=== PATIENT | male | born 1965 | race Two or more races ===

== ENCOUNTER 2024-09-30 11:01 | Outpatient (AMB) | payer OTHER, SELFPAY ==
--- NOTE | 2024-09-30 11:33 | A.OFFVIS_ITS ---
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 States his pain started approx 10 yrs, no injury or fall he can recall. Pain is all around his lumbar and radiates down to his knees and once to his toes. He experienced numbness in his right foot back in 2014. States he had a MRI 7-8 years ago but doesn't recall where he had it done. He was told he has O.A. He believes this could be sciatic pain. He has tried P.T about 8 years ago but states it did not really help him. He has not had any numbness in his toes since 2015. Customer Complaint Service Supervisor Required: Yes Customer Complaint Service Supervisor Services: Customer Complaint Service Supervisor Present Allergies No Known Allergies Allergy (Verified 09/30/24 11:41) Medication List - Last Reconciled 09/30/24 by Scarlett Levy MD carvedilol 3.125 mg PO BID cholecalciferol (vitamin D3) 25 mcg PO DAILY meloxicam 7.5 mg PO DAILY tamsulosin 0.4 mg PO BEDTIME HPI Comments Details: Chronic at least 10 years of back pain. Bothers him daily. He has been able to manage and denies intense pain. But he says it keeps him from working. Sometimes he would have severe pain episodes that prevents him from walking or working, happens every month. Switches sides from left and right. Stays in his lower back across, not midline, radiates to his legs to his knees. No numbness on his toes or knees. No PT or MRI for many years. No injections yet. [facility] Medical History (Updated 09/30/24 @ 11:52 by Scarlett Levy MD) Chronic back pain Social History (Updated 09/30/24 @ 11:42 by Suzette Alvares [facility]) Current occupational status: employed Current occupation: barbar/ rt hand Review of Systems Const All systems reviewed & are unremarkable except as noted in HPI and below Physical Exam Constitutional: Patient appears to be in no acute distress, well nourished and well developed. Patient was appropriately conversant and oriented. Good historian. MSK: No specific abnormalities found on inspection of the spine and all extremities. No pain with palpation over the lumbar area. Lumbar ROM was full. Bilateral hip, knee and ankle ROM WNL. No ligamentous laxity or crepitance. No increased effusion. Straight-leg raising test negative. FABERE test negative. Strength is 5/5 in all muscle groups tested. No increased tone noted. Neurological: Neurologic examination of the upper and lower extremities was nonfocal with intact sensation, muscle stretch reflexes and without focal motor deficits . Babinski was down going bilaterally. Clonus was negative. Gait is non-antalgic without loss of balance. Results Reviewed Results Reviewed: No recent imaging I reviewed records from the following: PCP Assessment & Plan Assessment & Plan (1) Chronic back pain: Code(s): M54.9 - Dorsalgia, unspecified; G89.29 - Other chronic pain Category: Medical Plan Chronic back pain without any specific tenderness on exam or any specific radiculopathy distribution. We will refer to physical therapy. Patient is agreeable. Lumbar x-rays today. Depending on results, we may need further imaging. We briefly talked about possibly pursuing injections, depending on results and his improvement from PT. Assessment and plan discussed with patient, and patient was agreeable. All questions were answered thoroughly. Follow up 6 weeks. Scarlett Levy MD, LARRY Board Certified, [place] Board of Physical Medicine and Rehabilitation (ABPMR) Board Certified, [place] Board of Electrodiagnostic Medicine (ABEM) Orders: Orders PT Evaluation and Treatment Today G89.29 - Other chronic pain, M54.9 - Dorsalgia, unspecified XR lumbar spine 2-3V Today G89.29 - Other chronic pain, M54.9 - Dorsalgia, unspecified Coding Level of Care Code New Pt Level 4 (98340) Diagnoses Chronic back pain M54.9; G89.29
== END 2024-09-30 11:54 | disposition home or self-care (01) ==
PROVIDERS: PCP Physician Assistant Medical; Visit Provider Physical Medicine & Rehabilitation
DX: M54.9 Dorsalgia, unspecified (principal); G89.29 Other chronic pain
CPT/HCPCS: 99203

== ENCOUNTER 2024-09-30 11:01 | Outpatient (REF) | payer OTHER, SELFPAY | END 2024-09-30 11:02 | disposition home or self-care (01) | LOC: HO.HOSX 11:01 | PROVIDERS: PCP Physician Assistant Medical; Visit Provider Physical Medicine & Rehabilitation | DX: M54.9 Dorsalgia, unspecified (principal); G89.29 Other chronic pain | CPT/HCPCS: 99202 ==

== ENCOUNTER 2024-11-12 08:51 | Outpatient (REF) | payer OTHER, SELFPAY ==
--- NOTE | ~2024-11-12 | XR_ITS ---
EXAMINATION: XR LUMBAR SPINE 2-3 VIEWS HISTORY: M54.9 - Dorsalgia, unspecified COMPARISON: There are no prior studies for comparison. FINDINGS: AP, lateral, and coned down views of the lumbar spine are submitted. Osseous mineralization is normal. Five nonrib-bearing lumbar vertebral bodies are identified, maintaining normal height and alignment without evidence of fracture or spondylolisthesis. There is minimal posterior spurring involving the inferior endplate of L3. The intervertebral disc spaces are preserved. The posterior elements are intact. The visualized paraspinal soft tissues are unremarkable. XR/XR lumbar spine 2-3V IMPRESSION: Minimal degenerative changes as described. Electronically signed by: Michele Aguilar MD 11/12/2024 02:25 PM RAEANN
--- OUTSIDE RECORDS SUMMARY | 2024-11-12 09:50 | XMS_ITS | Encounter Summary ---
Author Organization [employer] [facility] Address [address] [place] [address] Care Team Providers Care [place] Dental Lab Technician Name Role Phone Unavailable Primary Care Provider Unavailabl e Encounter Details Date Type Department Care Team (Latest Contact Info) Description 01/20/2019 Abstract [facility] CONVERSIONS Dental, Provider, DDS Social History Tobacco Use Types Packs/Day Years Used Date Smoking Tobacco: Never Assessed Sex and Gender Information Value Date Recorded Sex Assigned at Male 08/12/2022 10:28 AM EDT Legal Sex Male 10:28 AM EDT Gender Identity Male 08/12/2022 10:28 AM EDT Sexual Orientation Don't know 08/12/2022 10 :28 AM EDT documented as of this encounter Plan of Treatment Upcoming Encounters Date Type Department Care Team (Late st Contact Info) Description 11/22/2024 10:00 AM EST [facility] [address] [place], [place] [phone] Mary Duran [address] [place], [place] [phone] documented as of this encounter Visit Diagnoses Not on filedocumented in this encounter
--- OUTSIDE RECORDS SUMMARY | 2024-11-12 09:50 | XMS_ITS | Encounter Summary ---
Author Organization [facility] Address [address] [place] [address] Care Team Providers Care Computator Name Role Phone Unavailable Primary Care Provider Unavailabl e Encounter Details Date Type Department Care Team (Latest Contact Info) Description 01/24/2021 Abstract [facility] CONVERSIONS Dental, Provider, DDS Social History [...] Description 11/22/2024 10:00 AM EST Office Visit [facility] [address] [place], [place] [phone] Mary Duran [address] [place], [place] [phone] documented as of this encounter Visit Diagnoses Not on filedocumented in this encounter
--- OUTSIDE RECORDS SUMMARY | 2024-11-12 09:50 | XMS_ITS | Clinical Summary ---
Author Organization [facility] Address [address] [place] [address] Care Team Providers Care Marble Installer Name Role Phone Kalpesh Barker PA-C Primary Care Provider [phone] Source Comments PLEASE NOTE, if this patient is a minor, it may be UNLAWFUL to discuss sensitive information that is contained in these records (such as FAMILY PLANNING, MENTAL HEALTH or SUBSTANCE ABUSE) with the minor patient's parent or other person without the patient's specific authorization.[facility] Allergies No known active allergies Medications tamsulosin (FLOMAX) 0.4 mg 24 hr capsule TAKE 1 CAPSULE BY MOUTH EVERYDAY AT BEDTIME 0 Active oxybutynin chloride (DITROPAN-XL) 5 mg 24 hr tablet 1 Active magnesium oxide (MAG-OX) 400 mg (241.3 mg magnesium) tablet Take 1 Tablet by mouth once daily 3 Active meloxicam (MOBIC) 15 mg tabletIndications:L eft arm pain,Chronic midline low back pain without sciatica Take 1 Tablet by mouth once daily 30 Tablet 1 3 Active magnesium citrate solution Take 296 mL by mouth Active cholecalciferol (VITAMIN D-3) 50 mcg (2,000 unit) tablet Take 2,000 Units by mouth 4 05/11/20 25 Active atorvastatin (LIPITOR) 20 mg tabletIndications:M ixed hyperlipidemia TAKE 1 TABLET BY MOUTH ONCE DAILY WITH DINNER 90 Tablet 1 4 Active carvediloL (COREG) 12.5 mg tabletIndications:P alpitations TAKE 1 TABLET BY MOUTH TWICE A DAY WITH FOOD 180 Tablet 1 4 Active lisinopriL 5 mg tabletIndications:S tage 3a chronic kidney disease ([facility]) TAKE 1 TABLET BY MOUTH EVERY DAY 90 Tablet 1 4 Active Active Problems Problem Noted Date Diagnosed Date Vitamin D deficiency 05/11/2024 Chronic kidney disease due to benign hypertensio n 03/24/2024 Chronic kidney disease, stage 3a ([facility]) 03/24 Back pain 02/04/2024 History of latent tuberculosis 04/04/2020 BPH (benign prostatic hyperplasia) 01/11/2019 Overview (01/11/2019): 01/10/19 - Evaluated by [facility]: improving voiding patterns in setting of BPH/LUTS on Tamsulosin. Plan: c/w same. Prediabetes 12/14/2018 Palpitations 10/29/2018 Overview (12/14/2018): 01/29/18 -[facility] F/U due to palpitation. Pt had 30 day event monitor which showed rare PVC. Was started on Metoprolol but became too hypotensive so was switched to Carvedilol. No further cardiac F/U needed. 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 Pt completed 4 months of therapy. positive T-spot blood test Resolved Problems Problem Noted Date Diagnosed Date Resolved Date Latent tuberculosis 04/04/2020 04/04/20 20 Immunizations Name Administration Dates Next Due Hep B,adult,adjuvanted (HEPLISAV) 06/08/2024 INFLUENZA, SEASONAL, INJECTABLE 08/01/2015 Moderna COVID-19 Vaccine, re d cap blue label, 12+ Primary Series 03/05/2021,02/05/2021 TDAP 12/14/2018,08/01/2015 Family History Medical History Relation Name Comments BPH Father Cancer Father Diabetes Father Prostate Cancer Paternal Uncle Thyroid Disease Sister Relation Name Status Comments Father prostate Mother Alive Paternal Uncle Alive Sister Social History Tobacco Use Types Packs/Day Years Used Date Smoking Tobacco: Never Smokeless Tobacco: Never Tobacco Cessation:Counseling Given: Yes Alcohol Use Standard Drinks/Week Comments Yes 3 (1 standard drink = 0.6 oz pur e alcohol) occassional Social Connections Answer Date Recorded Connectedness 1 02/04/2024 Financial Resource Strain Answer Date R ecorded Financial Resource Strain 1 2023 Stress Answer Date Recorded Stress 1 02/04/2024 Physical Activity Answer Date Recorded Physical Activity 0 06/07/2019 Food Insecurity Answer Date Recorded Food 1 02/04/2024 Transportation Needs Answer Date Record ed Transportation 1 02/04/2024 Housing Stability Answer Date Recorded Housing 1 02/04/2024 Safety and Environment Answer Date Lj rded Safety 1 02/04/2024 Utilities Answer Date Recorded Utilities 1 02/04/2024 Employment Answer Date Recorded Employment 0 06/07/2019 Sex and Gender Information Value Date Recorded Sex Assigned at Male 10/29/2018 10:56 AM PST Legal Sex Male 8:37 AM PDT Gender Identity Male 10/29/2018 10:56 AM PST Sexual Orientation Straight 10/29/2018 10 :56 AM PST Occupation Industry Job Start Date Job End Date [employer] Not on file Not on file Not on file Last Filed Vital Signs Vital Sign Reading Time Taken Comments Blood Pressure 138/82 06/08/2024 10:34 AM EDT Pulse 72 06/08/2024 10:34 AM EDT Temperature 36.9 ??C (98.4 ??F) 02/04/2024 8:44 AM ED T Respiratory Rate 20 06/08/2024 10:34 AM EDT Oxygen Saturation 98% 06/08/2024 10:34 AM EDT Inhaled Oxygen Concentration - - Weight 84.2 kg (185 lb 9.6 oz) 06/08/2024 10:34 AM EDT Height 177.8 cm (5' 10 ) 06/08/2024 10:34 AM EDT Body Mass Index 26.63 06/08/2024 10:34 AM EDT Plan of Treatment Upcoming Encounters Date Type Department Care Team (Late st Contact Info) Description 12/09/2024 11:20 AM EST Office Visit [facility] [address] [place] [phone] Kalpesh Barker PA-C [address] [place] [address] Health Maintenance Due Date Last Done Comments CT Colonography 2012 Colonoscopy 2012 Colorectal Cancer Screening 2012 FIT/gFOBT 2012 Fecal DNA 2012 Flexible Sigmoidoscopy 2012 Imm-Zoster, Recombinant (1 of 2) 2017 Imm-Hepatitis B (2 of 2 - CpG 2-dose series) 07/06/2024 06/08/2024 Alcohol and Drug Screen 10/13/2024 02/04/20, 07/24/2023, 02/07/2022, Additional history exists Depression Annual Screen 10/13/2024 02/04/2024, 10/13 [id number] () 12/16/2024 03/05/2021, 02/05/2021 Postponed from 06/13/2024 (Patient postponement) Annual Preventive Care Visit 02/03/2025 02/04/2024, 07/24/2023, 05/07/2021, Additional history exists Tobacco Screening 02/03/2025 02/04/2024, 07/24/2023 Diabetes Screening 07/05/2025 07/05/2024, 0 07/05/2024, 02/20/2024, Additional history exists Lipid Screening 07/05/2025 07/05/2024, 02/10, 11/20/2023, Additional history exists Imm-DTaP/Tdap/Td (3 - Td or Tdap) 12/14/2028 12/14/2018, 08/01/2015 Imm-Influenza Discontinued 08/01/2015 HIV Screening Completed 04/12/2020 Hepatitis C Screening Completed 11/20/2023 Procedures Procedure Name Priority Date/Time Associated Diagnosis Comments REFERRAL TO ORTHOPEDICS Routine 09/30/2024 3:00 AM EST Chronic midline low back pain with bilateral sciatica HEMOGLOBIN GLYCOSYLATED A1C Routine 07/05/2024 8:37 AM EDT Prediabetes LIPID PANEL Routine 07/05/2024 8:37 AM EDT Mixed hyperlipidemia Stage 3a chronic kidney disease (HCC-CMS) Prediabetes HEPATITIS C AB W/RFLX HCV RNA, QT, RT PCR Routine 11/20/2023 9:20 AM EST Need for hepatitis C screening test ANTIBODY HIV-1&HIV-2 SINGLE RESULT Routine 04/12/2020 9:37 AM EDT Encounter for screening for HIV from Last 3 Months or Most Recently Relevant to Health Maintenance Results * REFERRAL TO ORTHOPEDICS (09/30/2024 3:00 AM EST) 09/30/2024 3:00 AM EST us Kalpesh Barker PA-C REFERRAL Final Result * (ABNORMAL) HEMOGLOBIN GLYCOSYLATED A1C (07/05/2024 8:37 AM EDT) HEMOGLOBIN A1C 5.7(H) <5.7 % of total Hgb [facility] Comment: For someone without known diabetes, a hemoglobin A1c value between 5.7% and 6.4% is consistent with prediabetes and should be confirmed with a follow-up test. For someone with known diabetes, a value <7% indicates that their diabetes is well controlled. A1c targets should be individualized based on duration of diabetes, age, comorbid conditions, and other considerations. This assay result is consistent with an increased risk of diabetes. Currently, no consensus exists regarding use of hemoglobin A1c for diagnosis of diabetes for children. Blood Blood / Unknown 07/05/2024 8 :37 AM EDT 07/05/2024 8:37 AM EDT Narrative [facility] - 07/06/2024 12:13 PM EDT FASTING:YES us Kalpesh Barker PA-C LAB - BLOOD DRAW Edited Resu lt - Final [facility] [address] [place] [id number], [facility] [address] [place] [phone] * LIPID PANEL (07/05/2024 8:37 AM EDT) CHOLESTEROL, TOTAL 127 <200 mg/dL [facility] HDL CHOLESTEROL 43 > OR = 40 mg/dL [facility] TRIGLYCERIDES 62 <150 mg/dL [facility] LDL-CHOLESTEROL 70 99 mg/dL (calc) [facility] Comment: Reference range: <100 Desirable range <100 mg/dL for primary prevention; ?? <70 mg/dL for patients with CHD or diabetic patients with > or = 2 CHD risk factors. LDL-C is now calculated using the Jose M calculation, which is a validated novel method providing better accuracy than the Friedewald equation in the estimation of LDL-C. Mahesh LUI et al. NED. 2013;310(19): 3683-5337 (http://education.[employer] Pixels/faq/MUE811) CHOL/HDLC RATIO 3.0 <5.0 (calc) [facility] NON-HDL CHOLESTEROL 84 <130 mg/dL (calc) [facility] Comment: For patients with diabetes plus 1 major ASCVD risk factor, treating to a non-HDL-C goal of <100 mg/dL (LDL-C of <70 mg/dL) is considered a therapeutic option. Blood Blood / Unknown 07/05/2024 8 :37 AM EDT 07/05/2024 8:37 AM EDT Narrative [facility] - 07/06/2024 12:13 PM EDT FASTING:YES Kalpesh Barker PA-C LAB - BLOOD DRAW Final Resul t [facility] [address] [place] [id number], [facility] [address] [place] [phone] * HEPATITIS C AB W/RFLX HCV RNA, QT, RT PCR (11/20/2023 9:20 AM EST) HEPATITIS C ANTIBODY NON-REACT DAYANA NON-REACT DAYANA [facility] Comment: HCV antibody was non-reactive. There is no laboratory evidence of HCV infection. In most cases, no further action is required. However, if recent HCV exposure is suspected, a test for HCV RNA (test code 42713) is suggested. For additional information please refer to http://education.[employer].K[employer]ure/faq/YKW50a0 (This link is being provided for informational/ educational purposes only.) Blood Blood / Unknown 11/20/2023 9 :20 AM EST 11/20/2023 9:21 AM EST Narrative [facility] - 11/21/2023 10:19 PM EST FASTING:YES Gretta Judd NP LAB - BLOOD DRAW Final Resul t Performing Organization Address City/[facility]/ZIP Co de Phone Number [facility] [address] [address], [facility] [address] [phone] * HIV-1 & HIV-2 ANTIBODIES (04/12/2020 9:37 AM EDT) [facility] HIV 1 AND 2 ANTIBODY SCREEN NEGATIVE NEGATIVE [facility] [employer] [facility] Comment: This assay is a 4th generation assay allowing for earlier detection of HIV infection by detecting the presence of the HIV-1 p24 antigen as well as the traditional antibodies to HIV type 1 (including group O) and type 2. ??Use of a 4th generation assay is the current CDC recommendation for HIV screening. Blood specimen (specimen) Blood / Unknown 04/12/2020 9:37 AM EDT 04/12/2020 1:00 PM EDT Narrative [facility] - 04/12/2020 3:36 PM EDT [employer], [place] [address] Proofer - Lori Carvajal MD PT ID [id number] ORD# [id number] Kalpesh Barker PA-C LAB - BLOOD DRAW Final Resul t Performing Organization Address City/[facility]/ZIP Co de Phone Number [place] [address], from Last 3 Months or Most Recently Relevant to Health Maintenance Insurance [employer] Member Subscriber Plan / Payer (Ef fective 2024-Present) Name:Lawson Miller Relation to Subscriber:Self Name:Lawson Miller Payer ID:[id number] Type:Indemnity Address: [facility] [address] [place] [address] Care Teams Marble Installer Relationship Specialty Start Date End Date Kalpesh Barker PA-C [address] [place] [address] PCP - General FAMILY MEDICINE, [place] 04/04/20
--- OUTSIDE RECORDS SUMMARY | 2024-11-12 09:50 | XMS_ITS | Clinical Summary ---
Author Organization [facility] it Address [address] [place] [address] Care Team Providers Care Oiling Machine Operator Name Role Phone Unavailable Primary Care Provider Unavailabl e Social History Tobacco Use Types Packs/Day Years Used Date Smoking Tobacco: Never Assessed Sex and Gender Information Value Date Recorded Sex Assigned at Not on file Gender Identity Not on file Sexual Orientation Not on file Plan of Treatment Health Maintenance Due Date Last Done Comments DTaP,Tdap,and Td Vaccines (1 - Tdap) 1986 Hepatitis B Vaccines (1 of 3 - 19+ 3-dose series) 1986 Zoster Vaccines (1 of 2) 2017 Cholesterol Screening (Lipid Panel) 09/15/2022 Colorectal Cancer Screening: Colonoscopy 09/15/2022 Depression Screening 09/15/2022 HIV Screening 09/15/2022 Hepatitis C Screening 09/15/2022 Social Influencers of Health Screening 09/15/2022 COVID-19 Vaccine (2023-2 5 season) 2024 Influenza Vaccine (#1) 2024 HIB Vaccines Aged Out No longer eligi ble based on patient's age to complete this topic HPV Vaccines Aged Out No longer eligi ble based on patient's age to complete this topic Hepatitis A Vaccines Aged Out No long er eligible based on patient's age to complete this topic IPV Vaccines Aged Out No longer eligi ble based on patient's age to complete this topic MMR Vaccines Aged Out No longer eligi ble based on patient's age to complete this topic Meningococcal ACWY Vaccine Aged Out N o longer eligible based on patient's age to complete this topic Pneumococcal Vaccine: Pediat rics (0 to 5 Years) and At-Risk Patients (6 to 64 Years) Aged Out No longer eligible b ased on patient's age to complete this topic RSV Immunization Patients Un rea 20 months Aged Out No longer eligible b ased on patient's age to complete this topic Varicella Vaccines Aged Out No longer eligible based on patient's age to complete this topic
--- OUTSIDE RECORDS SUMMARY | 2024-11-12 09:50 | XMS_ITS | Encounter Summary ---
Author Organization [facility] Address [address] [place] [address] Care Team Providers Care Insurance Defense Paralegal Name Role Phone Unavailable Primary Care Provider Unavailabl e Encounter Details Date Type Department Care Team (Latest Contact Info) Description 06/06/2022 Abstract [facility] CONVERSIONS Dental, Provider, DDS Social History Tobacco [...] Description 11/22/2024 10:00 AM EST Office Visit [facility] [address] [place], [place] [phone] Mary Duran [address] [place], [place] [phone] documented as of this encounter Visit Diagnoses Not on filedocumented in this encounter
--- OUTSIDE RECORDS SUMMARY | 2024-11-12 09:50 | XMS_ITS | Clinical Summary ---
Author Organization [employer] Address [address] [place] [address] Care Team Providers Care Petrophysical Engineer Name Role Phone Unavailable Primary Care Provider Unavailabl e Allergies No known active allergies Medications atorvastatin (Lipitor) 20 MG tablet Take 20 mg by mouth with evening meal. 12/16/2022 Active carvedilol (Coreg) 12.5 MG tablet TAKE 1 TABLET BY MOUTH 2 (TWO) TIMES DAILY WITH FOOD 12/15/2022 Active meloxicam (Mobic) 15 MG tablet Take 15 mg by mouth in the morning. 2022 Active tamsulosin (Flomax) 0.4 MG 24 hr capsule TAKE 1 CAPSULE BY MOUTH EVERYDAY AT BEDTIME 01/03/2023 Active oxybutynin XL (Ditropan-XL) 5 MG 24 hr tablet Take 5 mg by mouth in the morning. 11/06/2022 Active cholecalciferol (Vitamin D-3) 50 MCG (1999 UT) tablet Take 2,000 Units by mouth. 05/11/2024 05/11/20 Active magnesium citrate oral solution Take 296 mL by mouth 1 (one) time. Active lisinopril 5 MG tablet Take 5 mg by mouth Once per day. 08/09/2024 Active Social History Tobacco Use Types Packs/Day Years Used Date Smoking Tobacco: Never Smokeless Tobacco: Never Tobacco Cessation:Counseling Given: Not Answered Alcohol Use Standard Drinks/Week Comments Yes 0 (1 standard drink = 0.6 oz pur e alcohol) Sex and Gender Information Value Date Recorded Sex Assigned at Male 08/12/2022 10:28 AM EDT Legal Sex Male 10:28 AM EDT Gender Identity Male 08/12/2022 10:28 AM EDT Sexual Orientation Don't know 08/12/2022 10 :28 AM EDT Last Filed Vital Signs Vital Sign Reading Time Taken Comments Blood Pressure 116/72 08/10/2024 9:18 AM EDT Pulse 73 08/10/2024 9:18 AM EDT Temperature - - Respiratory Rate - - Oxygen Saturation - - Inhaled Oxygen Concentration - - Weight - - Height - - Body Mass Index - - Plan of Treatment Upcoming Encounters Date Type Department Care Team (Late st Contact Info) Description 11/22/2024 10:00 AM EST Office Visit [facility] [address] [place], [place] [phone] Mary Duran [address] [place], [place] [phone] Health Maintenance Due Date Last Done Comments CT Colonography 1967 Colonoscopy 1967 Colorectal Cancer Screening 1967 Dental X-Ray: Full Mouth 1967 Depression Screening 1967 FIT DNA/Cologuard 1967 FIT 1967 FOBT 1967 HIV Screening 1967 Lipid Panel 1967 SDOH Screening 1967 Sigmoidoscopy 1967 Alcohol/Substance Use Screening 1979 Hepatitis C Screening 1985 Pneumococcal Vaccine: 50+ Years (1 of 1 - PCV) 2017 Zoster Vaccines (1 of 2) 2017 COVID-19 Vaccine (3 - 2023-2 5 season) 2024 03/05/2021, 02/05/2021 Influenza Vaccine (#1) 2024 5, 08/01/2015 Hepatitis B Vaccines (2 of 2 - CpG 2-dose series) 07/06/2024 06/08/2024 Dental X-Ray: Bitewings 11/11/2024 11/10/2023 Dental Prophylaxis 11/18/2024 05/17/2024, 11/10/2023, 01/21/2023 Dental Oral Exam 01/04/2025 07/06/2024, 11/10/2023, 01/21/2023 Tobacco Screening 08/10/2025 08/10/2024 DTaP/Tdap/Td Vaccines (3 - T d or Tdap) 12/14/2028 12/14/2018, 08/01/2015 RSV Patients and Patients Aged 60 years or older (1 - 1-dose 75+ series) 2042 HIB Vaccines Aged Out No longer eligi [...] patient's age to complete this topic Meningococcal Vaccine Aged Out No bill hansa eligible based on patient's age to complete this topic RSV under 20 months Aged Out No longe r eligible based on patient's age to complete this topic Rotavirus Vaccines Aged Out No longer eligible based on patient's age to complete this topic Procedures Procedure Name Priority Date/Time Associated Diagnosis Comments PERIODIC ORAL EVALUATION - ESTABLISHED PATIENT Routine 07/06/2024 10:00 AM EDT PROPHYLAXIS - ADULT Routine 05/17/2024 1 0:00 AM EDT BITEWINGS - 4 RADIOGRAPHIC IMAGES Routine 11/10/2023 10:00 AM EST from Last 3 Months or Most Recently Relevant to Health Maintenance Insurance [facility]
--- OUTSIDE RECORDS SUMMARY | 2024-11-12 09:50 | XMS_ITS | Clinical Summary ---
Author Organization [facility] Address [address] [place] [phone] Phone Care Team Providers Care Director Of Digital Technology Name Role Phone Kalpesh Barker PA-C Primary Care Provider Allergies No known active allergies Medications tamsulosin (FLOMAX) 0.4 MG 24 hr capsule Take 0.4 mg by mouth every night Active atorvastatin (LIPITOR) 20 MG tablet Take 1 tablet by mouth 1 (one) time each day with dinner 12/16/2022 Active meloxicam (MOBIC) 15 MG tablet Take 15 mg by mouth in the morning. 2022 Active lisinopril 5 MG tablet Take 5 mg by mouth 1 (one) time each day Active carvedilol (COREG) 12.5 MG tablet Take 1 tablet by mouth in the morning and 1 tablet in the evening. Take with meals. 12/15/2022 Active magnesium citrate solution Take 296 mL by mouth 1 (one) time Active Cholecalciferol (Vitamin D3) 50 MCG (2000 UT) tabletIndicatio ns:Stage 3a chronic kidney disease (HCC),Vitamin D deficiency, not otherwise specified Take 2,000 Units by mouth 1 (one) time each day 30 tablet 11 05/11/2024 5 Active Active Problems Problem Noted Date Diagnosed Date Hypertension 05/11/2024 Vitamin D deficiency, not otherwise specified Stage 3a chronic kidney disease 03/24/2024 Chronic kidney disease due to benign hypertensio n 03/24/2024 Benign prostatic hyperplasia 01/11/2019 Overview (03/18/2024): 01/10/19 - Evaluated by [facility] Urology: improving voiding patterns in setting of BPH/LUTS on Tamsulosin. Plan: c/w same. Prediabetes 12/14/2018 Immunizations Name Administration Dates Next Due Influenza, Unspecified 08/01/2015 Moderna SARS-COV-2 03/05/2021,02/05/2021 Tdap 12/14/2018,08/01/2015 Social History Tobacco Use Types Packs/Day Years Used Date Smoking Tobacco: Never Smokeless Tobacco: Never Tobacco Cessation:Counseling Given: Not Answered Alcohol Use Standard Drinks/Week Comments Yes 0 (1 standard drink = 0.6 oz pur e alcohol) Sex and Gender Information Value Date Recorded Sex Assigned at Not on file Legal Sex Male 4:00 PM EDT Gender Identity Not on file Sexual Orientation Not on file Last Filed Vital Signs Vital Sign Reading Time Taken Comments Blood Pressure 130/80 08/09/2024 10:57 AM EDT Pulse 66 08/09/2024 10:57 AM EDT Temperature - - Respiratory Rate - - Oxygen Saturation 99% 03/24/2024 3:27 PM EDT Inhaled Oxygen Concentration - - Weight 84.8 kg (187 lb) 08/09/2024 10:57 AM EDT Height - - Body Mass Index - - Plan of Treatment Upcoming Encounters Date Type Department Care Team (Late st Contact Info) Description 02/07/2025 9:30 AM EDT Office Visit [facility] [address] [phone] Sendy Tena ARNP [address] [phone] Health Maintenance Due Date Last Done Comments Pneumococcal Vaccine: Pediat rics (0 to 5 Years) and At-Risk Patients (6 to 64 Years) (1 of 2 - PCV) 1973 Hepatitis B Vaccine (1 of 3 - 19+ 3-dose series) 12/06 Colorectal Cancer Screening: Annual FOBT 2016 Colorectal Cancer Screening: Colonoscopy 2016 Colorectal Cancer Screening: Sigmoidoscopy 2016 Influenza Vaccine (#1) 2024 08/01/2015 Insurance MEDICAID MEDICAID Care Teams Director Of Digital Technology Relationship Specialty Start Date End Date Kalpesh Barker PA-C [address] [place] [address] PCP - General Physician Ground Operations Supervisor 03/02/24
== END 2024-11-12 08:52 | disposition home or self-care (01) ==
LOC: HO.HOSX 08:51
PROVIDERS: PCP Physician Assistant Medical; Visit Provider Physical Medicine & Rehabilitation
DX: M54.50 Low back pain, unspecified (principal); G89.29 Other chronic pain
CPT/HCPCS: 72100; 99212

== ENCOUNTER → 2024-11-12 09:42 | Outpatient (BNV) | payer OTHER, SELFPAY | PROVIDERS: PCP Physician Assistant Medical; Visit Provider Radiology Diagnostic Radiology | DX: M54.50 Low back pain, unspecified (principal) | CPT/HCPCS: 72100 ==

== ENCOUNTER 2025-05-19 08:50 | Outpatient (AMB) | payer OTHER, SELFPAY ==
--- OUTSIDE RECORDS SUMMARY | 2025-05-19 09:10 | XMS_ITS | Clinical Summary ---
Author Organization [facility] Address [address] [place] [address] Care Team Providers Care Wool Presser Name Role Phone Kalpesh Barker PA-C Primary Care Provider [phone] Source Comments PLEASE NOTE, if this patient [...] 1 CAPSULE BY MOUTH EVERYDAY AT BEDTIME 03/25/20 20 Active oxybutynin chloride (DITROPAN-XL) 5 mg 24 hr tablet 07/26/20 21 Active magnesium oxide (MAG-OX) 400 mg (241.3 mg magnesium) tablet Take 1 Tablet by mouth once daily 04/22/20 23 Active magnesium citrate solution Take 296 mL by mouth Active cholecalciferol (VITAMIN D-3) 50 mcg (2,000 unit) tablet Take 2,000 Units by mouth 05/11/20 24 Active atorvastatin (LIPITOR) 20 mg tabletIndications: Mixed hyperlipidemia Take 1 Tablet by mouth once daily with dinner 90 Tablet 1 12/09/19 25 Active carvediloL (COREG) 12.5 mg tabletIndications: Palpitations TAKE 1 TABLET BY MOUTH TWICE A DAY WITH FOOD 180 Tablet 1 12/09/19 25 Active lisinopriL 5 mg tabletIndications: Stage 3a chronic kidney disease (CMS & HHS-HCC) Take 1 Tablet by mouth once daily 90 Tablet 1 12/09/19 25 Active meloxicam (MOBIC) 15 mg tabletIndications: Left arm pain,Chronic midline low back pain without sciatica TAKE 1 TABLET BY MOUTH EVERY DAY 90 Tablet 1 05/02/20 25 Active meloxicam (MOBIC) 15 mg tabletIndications: Left arm pain,Chronic midline low back pain without sciatica Take 1 Tablet by mouth once daily 90 Tablet 1 12/09/19 25 025 Discontinued Active Problems Problem Noted Date Diagnosed Date Vitamin D deficiency 05/11/2024 Chronic kidney disease due to benign hypertensio n 03/24/2024 Chronic kidney disease, stage 3a (CMS & HHS-HCC) 03/24/2024 Back pain 02/04/2024 History of latent tuberculosis 04/04/2020 BPH (benign prostatic hyperplasia) 01/11/2019 Overview (01/11/2019): 01/10/19 - Evaluated by [facility] Urology: improving voiding patterns in setting of [...] Date Latent tuberculosis 04/04/2020 04/04/20 20 Immunizations Immunization Administration Dates Next Due Hep B,adult,adjuvanted (HEPLISAV) 12/09/2024, INFLUENZA, SEASONAL, INJECTABLE 08/01/2015 Moderna COVID-19 Vaccine, [...] alcohol) occassional Social Connections Answer Date Recorded How often do you feel lonely or isolated from th ose around you? 1 12/09/2024 Financial Resource Strain Answer Date R ecorded Hard to pay for: Food 1 12/09/2024 Stress Answer Date Recorded Do you feel these kinds of stress these days? 1 12/09/2024 Physical Activity Answer Date Recorded Physical Activity 0 06/07/2019 Food Insecurity Answer Date Recorded Hard to pay for: Food 1 12/09/2024 Transportation Needs Answer Date Record ed Hard to pay for: Transportation 1 12/09/2024 Housing Stability Answer Date Recorded Housing 1 02/04/2024 Safety and Environment Answer Date Lj rded Safety 1 02/04/2024 Utilities Answer Date Recorded Hard to pay for: Utilities 1 12/09 Employment Answer Date Recorded Employment 0 06/07/2019 [...] Sign Reading Time Taken Comments Blood Pressure 128/86 12/09/2024 11:16 AM EST Pulse 61 12/09/2024 11:16 AM EST Temperature 36.7 C (98.1 F) 12/09/2024 11:16 AM EST Respiratory Rate 20 12/09/2024 11:16 AM EST Oxygen Saturation 100% 12/09/2024 11:16 AM EST Inhaled Oxygen Concentration - - Weight 85.9 kg (189 lb 6.4 oz) 12/09/2024 11:16 AM EST Height 177.8 cm (5' 10 ) 12/09/2024 11:16 AM EST Body Mass Index 27.18 12/09/2024 11:16 AM EST Plan of Treatment Health Maintenance Due Date Last Done Comments CT Colonography 2012 FIT/gFOBT 2012 Fecal DNA 2012 Flexible Sigmoidoscopy 2012 Imm-Pneumococcal 50+ (1 of 1 - PCV) 2017 Imm-Zoster, Recombinant (1 of 2) 2017 [id number] (3 - 2023- season) 2024 021, 02/05/2021 Annual Wellness (Adult): Indicated (All Coverage) 02/03/2025 02/04/2024, 07/24/2023, 05/07/2021, Additional history exists Anxiety Screening 12/09/2025 12/09/2024 Tobacco Screening 12/09/2025 12/09/2024, 07/24/2023 Diabetes Screening 12/14/2025 12/14/2024, 0 12/14/2024, 07/05/2024, Additional history exists Lipid Screening 12/14/2025 12/14/2024, 06/14, 02/20/2024, Additional history exists Imm-DTaP/Tdap/Td (3 - Td or Tdap) 12/14/2028 019, 08/01/2015 Colonoscopy 03/17/2030 03/17/2025 Colorectal Cancer Screening 03/17/2030 Imm-Influenza Discontinued 08/01/2015 HIV Screening Completed 04/12/2020 Hepatitis C Screening Completed 11/20/2023 Alcohol and Drug Screen Completed 12/09/19 25, 02/04/2024, 07/24/2023, Additional history exists Depression Annual Screen Completed 025, 02/04/2024, 10/29/2018 Imm-Hepatitis B Completed 12/09/2024, 06/08/2024 Procedures Procedure Name Priority Date/Time Associated Diagnosis Comments REFERRAL FOR COLONOSCOPY Routine 03/17/2025 3:00 AM EDT Colon cancer screening HEMOGLOBIN GLYCOSYLATED A1C Routine 12/14/2024 8:50 AM EST Prediabetes LIPID PANEL Routine 12/14/2024 8:50 AM EST Mixed hyperlipidemia Prediabetes HEPATITIS C AB W/RFLX HCV RNA, QT, RT PCR Routine 11/20/2023 9:20 AM EST Need for hepatitis C screening test ANTIBODY HIV-1&HIV-2 SINGLE RESULT Routine 04/12/2020 9:37 AM EDT Encounter for screening for HIV from Last 3 Months or Most Recently Relevant to Health Maintenance Results * REFERRAL FOR COLONOSCOPY (03/17/2025 3:00 AM EDT) 03/17/2025 3:00 AM EDT us Kalpesh Barker PA-C REFERRAL Final Result * (ABNORMAL) HEMOGLOBIN GLYCOSYLATED A1C (12/14/2024 8:50 AM EST) HEMOGLOBIN A1C 5.7(H) <5.7 % of total Hgb [email or web address] Comment: For someone without known diabetes, a [...] diabetes for children. Blood Blood / Unknown 12/14/2024 8 :50 AM EST 12/14/2024 8:50 AM EST Narrative [facility] - 12/15/2024 10:12 AM EST FASTING:YES us Kalpesh Barker PA-C LAB - BLOOD DRAW Edited Resu lt - Final [facility] [address] [place] [id number], [email or web address] [address] [place] [phone] * (ABNORMAL) LIPID PANEL (12/14/2024 8:50 AM EST) CHOLESTEROL, TOTAL 210(H) <200 mg/dL [email or web address] HDL CHOLESTEROL 50 > OR = 40 mg/dL [email or web address] TRIGLYCERIDES 77 <150 mg/dL [email or web address] LDL-CHOLESTEROL 142(H) 99 mg/dL (calc) [email or web address] Comment: Reference range: <100 Desirable range <100 mg/dL for primary prevention; <70 mg/dL for patients with CHD or diabetic patients with > or = 2 CHD risk factors. LDL-C is now calculated using the Jose M calculation, which is a validated novel method providing better accuracy than the Friedewald equation in the estimation of LDL-C. Mahesh SS et al. NED. 2013;310(19): 4705-8076 (http://[employer].Catchafire/faq/NQJ198) CHOL/HDLC RATIO 4.2 <5.0 (calc) [email or web address] NON-HDL CHOLESTEROL 160(H) <130 mg/dL (calc) [email or web address] Comment: For patients with diabetes plus 1 major ASCVD risk factor, treating to a non-HDL-C goal of <100 mg/dL (LDL-C of <70 mg/dL) is considered a therapeutic option. Blood Blood / Unknown 12/14/2024 8 :50 AM EST 12/14/2024 8:50 AM EST Narrative [facility] - 12/15/2024 10:12 AM EST FASTING:YES us Kalpesh Barker PA-C LAB - BLOOD DRAW Final Resul t [facility] [address] [place] [phone], [facility] [address] [phone] * HEPATITIS C AB W/RFLX HCV RNA, QT, RT PCR (11/20/2023 9:20 AM EST) HEPATITIS C ANTIBODY NON-REACT DAYANA NON-REACT DAYANA [email or web address] Comment: HCV antibody was non-reactive. There is no laboratory evidence of HCV infection. In most cases, no further action is required. However, if recent HCV exposure is suspected, a test for HCV RNA (test code 05056) is suggested. For additional information please refer to http://education.[employer]/faq/EJD91s3 (This link is being provided for informational/ educational purposes only.) Blood Blood / Unknown 11/20/2023 9 :20 AM EST 11/20/2023 9:21 AM EST Narrative [facility] - 11/21/2023 10:19 PM EST FASTING:YES Gretta Judd NP LAB - BLOOD DRAW Final Resul t [facility] [address] [address], [facility] [address] [place] [address] * HIV-1 & HIV-2 ANTIBODIES (04/12/2020 9:37 AM EDT) [facility] HIV 1 AND 2 ANTIBODY SCREEN NEGATIVE NEGATIVE [facility] Comment: This assay is a 4th generation assay allowing for earlier detection of HIV infection by detecting the presence of the HIV-1 p24 antigen as well as the traditional antibodies to HIV type 1 (including group O) and type 2. Use of a 4th generation assay is the current CDC recommendation for HIV screening. Blood specimen (specimen) Blood / Unknown 04/12/2020 9:37 AM EDT 04/12/2020 1:00 PM EDT [facility] - 04/12/2020 3:36 PM EDT [employer] [address] Aids Social Worker - Lori Carvajal MD PT ID [id number] ORD# [id number] Kalpesh Barker PA-C LAB - BLOOD DRAW Final Resul t Performing Organization Address City/[facility]/ZIP Co de Phone Number [address] [address], from Last 3 Months or Most Recently Relevant to Health Maintenance Insurance [employer] Member Subscriber Plan / Payer (Ef fective 2024-Present) Name:Lawson Miller Relation to Subscriber:Self Name:Lawson Miller Payer ID:[id number] Type:Indemnity Address: [facility] [address] [place] [address] Care Teams Wool Presser Relationship Specialty Start Date End Date Kalpesh Barker PA-C [address] [place] [address] PCP - General FAMILY MEDICINEVINCE 04/04/20
--- OUTSIDE RECORDS SUMMARY | 2025-05-19 09:10 | XMS_ITS | Clinical Summary ---
Author Organization [address] [facility] Address [address] [place] [address] Phone Care Team Providers Care Final Inspector Truck Trailer Name Role Phone Kalpesh Barker Primary Care Provider [phone] Allergies No known active allergies Medications atorvastatin (LIPITOR) 20 mg tablet Take 1 tablet (20 mg total) by mouth at bedtime. Active carvediloL (COREG) 12.5 mg tablet Take 1 tablet (12.5 mg total) by mouth 2 (two) times a day with meals. Active lisinopriL (PRINIVIL,ZESTR IL) 5 mg tablet Take 1 tablet (5 mg total) by mouth 1 (one) time each day. Active meloxicam (MOBIC) 15 mg tablet Take 1 tablet (15 mg total) by mouth 1 (one) time each day. Active cholecalciferol (VITAMIN D-3) 50 mcg (2,000 unit) tablet Take 1 tablet (2,000 Units total) by mouth 1 (one) time each day. Active magnesium citrate solution Take 296 mL by mouth 1 (one) time. Active magnesium oxide (MAG-OX) 400 mg magnesium tablet Take 1 tablet (400 mg total) by mouth 1 (one) time each day. Active oxyBUTYnin XL (DITROPAN-XL) 5 mg 24 hr tablet Take by mouth. Do not crush, chew, or split. Active tamsulosin (FLOMAX) 0.4 mg 24 hr capsule Take 1 capsule (0.4 mg total) by mouth 1 (one) time each day. Capsules should be taken 30 minutes following the same meal each day. Active bisacodyL (DULCOLAX) 5 mg EC tablet Take 2 tablets by mouth right before beginning bowel prep. See instructions provided by the office 2 tablet 5 Active polyethylene glycol (Golytely) 236-22.74-6.74 -5.86 gram solution Take 4L by mouth once for one dose. May substitue any PEG. Starting at 6PM the night before your procedure drink 1 8oz glasses at your own pace until you complete half of the gallon. Finish 2nd half of the gallon 5 hours before your procedure. 4000 mL 5 Active Encounters Date Type Department Care Team Description 03/17/2025 11:37 AM EDT Anesthesia Event [facility] Endoscopy [address] [place] [address] Dot Rodriguez MD 03/17/2025 10:07 AM EDT - 03/17/2025 11:59 PM EDT Hospital Encounter [facility] Endoscopy [address] [place] [address] Clement Antunez MD Elliott, Barbara J, CRNA History of colon polyps Discharge Disposition: Home or Self Care from Last 3 Months Surgical History Surgery Date Site/Laterality Comments COLONOSCOPY Medical History Medical History Date Comments Hypertension Hyperlipidemia Chronic kidney disease History of palpitations BPH (benign prostatic hyperplasia) Prediabetes Social History Tobacco Use Types Packs/Day Years Used Date Smoking Tobacco: Never Smokeless Tobacco: Never Tobacco Cessation:Counseling Given: Not Answered Alcohol Use Standard Drinks/Week Comments Yes 0 (1 standard drink = 0.6 oz pur e alcohol) Interpersonal Safety Answer Date Record ed Physical Abuse 03/17/2025 Verbal Abuse 03/17/2025 Sex and Gender Information Value Date Recorded Sex Assigned at Not on file Legal Sex Male 3:16 AM EST Gender Identity Not on file Sexual Orientation Not on file Obstetrics History Last Filed Vital Signs Vital Sign Reading Time Taken Comments Blood Pressure 109/60 03/17/2025 12:16 PM EDT Pulse 63 03/17/2025 12:16 PM EDT Temperature 36.6 C (97.8 F) 03/17/2025 11:17 AM EDT Respiratory Rate 15 03/17/2025 12:16 PM EDT Oxygen Saturation 98% 03/17/2025 12:16 PM EDT Inhaled Oxygen Concentration - - Weight 84.8 kg (187 lb) 03/17/2025 11:17 AM EDT Height 177.8 cm (5' 10 ) 03/17/2025 11:17 AM EDT Body Mass Index 26.83 03/17/2025 11:17 AM EDT Plan of Treatment Health Maintenance Due Date Last Done Comments Pneumococcal Vaccine: 50+ Years (1 of 1 - PCV) 2017 Zoster Vaccines (1 of 2) 2017 Social Influencers of Health Screening 09/15/2022 COVID-19 Vaccine (3 - 2023- season) 2024 03/05/2021, 02/05/2021 Depression Screening 10/13/2024 Influenza Vaccine (#1) 2025 08/01/2015 Hypertension/CHF/CAD Annual BMP Blood Test 12/14/2025 12/14/2024 DTaP,Tdap,and Td Vaccines (3 - Td or Tdap) 12/14/2028 12/14/2018, 08/01/2015 Cholesterol Screening (Lipid Panel) 12/14/2029 12/14/2024, 12/14/2024, 07/05/2024, Additional history exists Colorectal Cancer Screening: Colonoscopy 03/17/2030 03/17/2025 HIV Screening Completed 04/12/2020 Hepatitis C Screening Completed 11/20/2023 Hepatitis B Vaccines Completed 12/09/2024, 06/08/20 HIB Vaccines Aged Out No longer eligi [...] patient's age to complete this topic Meningococcal B Vaccine Aged Out No l onger eligible based on patient's age to complete this topic RSV Immunization Patients Under 20 months Aged Out No longer eligible based on patient's age to complete this topic Varicella Vaccines Aged Out No longer eligible based on patient's age to complete this topic Procedures Procedure Name Priority Date/Time Associated Diagnosis Comments COLONOSCOPY Routine 03/17/2025 11:55 AM EDT History of colon polyps TISSUE EXAM Routine 03/17/2025 11:48 AM EDT History of colon polyps from Last 3 Months Results * COLONOSCOPY Anesthesia - [facility]; [facility] ENDOSCOPY (03/17/2025 11:55 AM EDT) Anatomical Region Laterality Modality Other 03/17/2025 11:3 5 AM EDT Impressions 03/17/2025 11:58 AM EDT - Internal hemorrhoids. - One 3 mm polyp in the ascending colon. Biopsied. Recommendation: - Await pathology results. - Use fiber, for example Citrucel, Fibercon, Konsyl or Metamucil. - Repeat colonoscopy in 5 years for surveillance. Narrative 03/17/2025 11:58 AM EDT [facility] GI Patient Name: Lawson Miller Procedure Date: 03/17/2025 11:35 AM Date of : 1965 Age: 59 Gender: Male Note Status: Finalized Attending MD: Clement Antunez MD, Procedure Date No Time: 03/17/2025 Procedure: Colonoscopy Indications: High risk colon cancer surveillance: Personal history of colonic polyps Providers: Clement Antunez MD Referring MD: Clement Antunez MD Medicines: Propofol per Anesthesia Complications: No immediate complications. Estimated Blood Loss: Estimated blood loss was minimal. Procedure: Pre-Anesthesia Assessment: - ASA Grade Assessment: II - A patient with mild systemic disease. After I obtained informed consent, the scope was passed under direct vision. Throughout the procedure, the patient's blood pressure, pulse, and oxygen saturations were monitored continuously.The Olympus Pediatric Colonosocpe was introduced through the anus and advanced to the cecum, identified by appendiceal orifice and ileocecal valve. The colonoscopy was performed without difficulty. The patient tolerated the procedure well. The quality of the bowel preparation was excellent. Findings: The perianal and digital rectal examinations were normal. Internal hemorrhoids were found during endoscopy. The hemorrhoids were Grade I (internal hemorrhoids that do not prolapse). A 3 mm polyp was found in the ascending colon. The polyp was sessile. Biopsies were taken with a cold forceps for histology. Estimated blood loss was minimal. Procedure Code(s): --- Professional --- 86875, Colonoscopy, flexible; with biopsy, single or multiple Diagnosis Code(s): --- Professional --- K64.0, First degree hemorrhoids D12.2, Benign neoplasm of ascending colon CPT copyright 2020 [employer]. All rights reserved. The codes documented in this report are preliminary and upon coremaker review may be revised to meet current compliance requirements. Clement Antunez MD 03/17/2025 11:57:58 AM This report has been signed electronically.Clement Antunez MD Number of Addenda: 0 Note Initiated On: 03/17/2025 11:35 AM Scope In: Scope Out: Endoscopy Department at [facility] - [address] [place] [id number] Procedure Note Clement Antunez MD - 03/17/2025 [facility] GI Patient Name: Lawson Miller Procedure Date: 03/17/2025 11:35 AM Date of : 1965 Age: 59 Gender: Male Note Status: Finalized Attending MD: Clement Antunez MD, Procedure Date No Time: 03/17/2025 Procedure: Colonoscopy Indications: High risk colon cancer surveillance: Personalhistory of colonic polyps Providers: Clement Antunez MD Referring MD: Clement Antunez MD Medicines: Propofol per Anesthesia Complications: No immediate complications. Estimated Blood Loss: Estimated blood loss was minimal. Procedure: Pre-Anesthesia Assessment: - ASA Grade Assessment: II - A patient with mild systemic disease. After I obtained informed consent, the scope was passed under direct vision. Throughout theprocedure, the patient's blood pressure, pulse, and oxygen saturations were monitored continuously.The Olympus Pediatric Colonosocpe was introduced through theanus and advanced to the cecum, identified byappendiceal orifice and ileocecal valve. The colonoscopy was performed without difficulty. The patient tolerated the procedure well. The quality of the bowel preparation was excellent. Findings: The perianal and digital rectal examinations were normal. Internal hemorrhoids were found during endoscopy.The hemorrhoids were Grade I (internal hemorrhoids thatdo not prolapse). A 3 mm polyp was found in the ascending colon. The polyp was sessile. Biopsies were taken with a cold forceps for histology. Estimated blood loss was minimal. Procedure Code(s): --- Professional --- 20278, Colonoscopy, flexible; with biopsy, singleor multiple Diagnosis Code(s): --- Professional --- K64.0, First degree hemorrhoids D12.2, Benign neoplasm of ascending colon CPT copyright 2020 [employer]. All rights reserved. The codes documented in this report are preliminary and upon coremaker reviewmay be revised to meet current compliance requirements. Clement Antunez MD 03/17/2025 11:57:58 AM This report has been signed electronically.Clement Antunez MD Number of Addenda: 0 Note Initiated On: 03/17/2025 11:35 AM Scope In: Scope Out: Endoscopy Department at [facility] - [address] [place] [id number] IMPRESSION: - Internal hemorrhoids. - One 3 mm polyp in the ascending colon.Biopsied. Recommendation: - Await pathology results. - Use fiber, for example Citrucel, Fibercon, Konsylor Metamucil. - Repeat colonoscopy in 5 years for surveillance. Clement Antunez MD GI~PROCEDURE ORDERABLES Final Re sult * Tissue exam (03/17/2025 11:48 AM EDT) Final Diagnosis Ascending Colon, polyp: Tubular adenoma. 03/18/2025 11:14 AM EDT [facility] Gross Description A. Large Intestine, Right/Ascend ing Colon, polypX1: Labeled ascend colon polyp x 1 . It in formalin are four soft to rubbery, prabhakar-pink to red tissue fragments ranging from 0.1 cm to 0.6 cm, in greatest diameters, which are wrapped in paper and submitted in toto in one cassette, four pieces, multiple levels. dvb/DG 03/18/2025 11:14 AM EDT [facility] Disclaimer Unless otherwise specified, all tissue is 10% NB formalin fixed and paraffin embedded. 03/18/2025 11:14 AM EDT [facility] Tissue Ascending colon structure / Unknown 03/17/2025 11:48 AM EDT 03/17/2025 12:23 PM EDT us Clement Antunez MD LAB PATHOLOGY ORDERABLES Final R esult [facility] [address] [place] [address], from Last 3 Months Insurance [facility] [employer] Care Teams Final Inspector Truck Trailer Relationship Specialty Start Date End Date Kalpesh Barker PA [address] [place] [address] PCP - General 12/10/24
--- OUTSIDE RECORDS SUMMARY | 2025-05-19 09:10 | XMS_ITS | Clinical Summary ---
Author Organization [facility] Address [address] [place] [phone] Phone Care Team Providers Care Inker Machine Name Role Phone Kalpesh Barker PA-C Primary [...] by mouth in the morning. 2022 Active carvedilol (COREG) 12.5 MG tablet Take 1 tablet by mouth in the morning and 1 tablet in the evening. Take with meals. 12/15/2022 Active magnesium citrate solution Take 296 mL by mouth 1 (one) time Active lisinopril 5 MG tabletIndicatio ns:Stage 3a chronic kidney disease (HCC),Hypertens ion Take 1 tablet (5 mg total) by mouth 1 (one) time each day 90 tablet 3 02/07/2025 02/08/20 26 Active Cholecalciferol (Vitamin D3) 50 MCG (1999) tabletIndicatio ns:Stage 3a chronic kidney disease (HCC),Vitamin D deficiency, not otherwise specified Take 2,000 Units by mouth 1 (one) time each day 30 tablet 11 05/11/2024 05/11/20 25 Active Problems Problem Noted Date Diagnosed Date Hypertension 05/11/2024 Vitamin D deficiency, not otherwise specified Stage 3a chronic kidney disease 03/24/2024 Chronic kidney disease due to benign hypertensio n 03/24/2024 Benign prostatic hyperplasia 01/11/2019 Overview (03/18/2024): 01/10/19 - Evaluated by [facility] Urology: improving voiding patterns in setting of BPH/LUTS on Tamsulosin. Plan: c/w same. Prediabetes 12/14/2018 Immunizations Immunization Administration Dates Next Due Influenza, Unspecified 08/01/2015 [...] Sign Reading Time Taken Comments Blood Pressure 124/82 02/07/2025 9:38 AM EDT Pulse 70 02/07/2025 9:38 AM EDT Temperature - - Respiratory Rate - - Oxygen Saturation 99% 03/24/2024 3:27 PM EDT Inhaled Oxygen Concentration - - Weight 87.1 kg (192 lb) 02/07/2025 9:38 AM EDT Height - - Body Mass Index - - Plan of Treatment Upcoming Encounters Date Type Department Care Team (Late st Contact Info) Description 08/15/2025 11:00 AM EST Office Visit [facility] [address] [phone] Sendy Tena ARNP [address] [phone] Health Maintenance Due Date Last Done Comments Hepatitis B Vaccine (1 of 3 - 19+ 3-dose series) 12/06 Pneumococcal Vaccine: 50+ Years (1 of 2 - PCV) 987 Colorectal Cancer Screening: Annual FOBT 2016 Colorectal Cancer Screening: Colonoscopy 2016 Colorectal Cancer Screening: Sigmoidoscopy 2016 Influenza Vaccine (#1) 2025 08/01/2015 Insurance Medicaid Medicaid Care Teams Inker Machine Relationship Specialty Start Date End Date Kalpesh Barker PA-C [address] [place] [address] PCP - General Physician Inorganic Chemistry Teacher 03/02/24
--- OUTSIDE RECORDS SUMMARY | 2025-05-19 09:10 | XMS_ITS | Encounter Summary ---
Author Organization [employer] Address [address] [facility] [address] [place] [address] Care Team Providers Care Marine Architect Name Role Phone Unavailable Primary Care Provider Unavailabl e Encounter Details Date Type Department Care Team (Latest Contact Info) Description 01/20/[address] [facility] CONVERSIONS Dental, Provider, DDS Social [...] Care Team (Late st Contact Info) Description 06/27/2025 10:00 AM EDT Office Visit [facility] [address] [place], [place] [phone] Mary Duran [address] [place], [place] [phone] documented as of this encounter Visit Diagnoses Not on filedocumented in this encounter
[2025-05-19 09:11] VITALS: BMI 29.9
--- NOTE | 2025-05-19 09:11 | A.OFFVIS_ITS ---
Vital Signs 05/19/25 09:11 Height 5 ft 1 in Weight 158 lb BMI 29.9 Intake Visit Reasons: OV- Low back pain Intake Note: Lawson is a 59 year old male who presents today for a follow up for his lower back pain. At last visit we discussed to continue at home exercises taught by Physical therapy. Patient states he continued to do P.T at home for 2 more weeks after he completed P.T, however he then discontinue doing home exercise and his pain had return. Reports pain is very light and he was able to work and function. Patient also reports he fell 1 week ago at his mothers house, injured his lower back and is now having radiating pain down his right knee. Disability Examiner Required: Yes Disability Examiner Services: Disability Examiner Present Disability Examiner Name: Maryuri JUSTEN/LINDA Allergies No Known Allergies Allergy (Verified 05/19/25 09:22) Medication List - Last Reconciled 05/19/25 by Scarlett Levy MD carvedilol 3.125 mg PO BID cholecalciferol (vitamin D3) 25 mcg PO DAILY meloxicam 7.5 mg PO DAILY tamsulosin 0.4 mg PO BEDTIME HPI Comments Details: Chronic at least 10 years of back pain. Bothers him daily. He has been able to manage and denies intense pain. But he says it keeps him from working. Sometimes he would have severe pain episodes that prevents him from walking or working, happens every month. Switches sides from left and right. Stays in his lower back across, not midline, radiates to his legs to his knees. No numbness on his toes or knees. He finished PT and was doing home exercises. Was feeling a lot better with PT. When I last saw him, pain was axial only. However since fall last week, pain now from lower back, right side, going down to right knee lateral side/lateral thigh. Worse with sitting and bending. No new numbness. He did not see urgent care or get xrays after the fall. No bruising. No groin pain. [facility] Medical History (Updated 05/19/25 @ 09:42 by Scarlett Levy MD) Chronic back pain Social History (Reviewed 05/19/25 @ 09:24 by Suzette Alvares [facility]) Current occupational status: employed Current occupation: barbar/ rt hand Physical Exam Vital Signs: BMI result Body Mass Index 29.9 Constitutional: Patient appears to be in no acute distress, well nourished and well developed. Patient was appropriately conversant and oriented. Good historian. MSK: No specific abnormalities found on inspection of the spine and all extremities. No pain with palpation over the lumbar area. Tenderness over spinous processes or facets. Tender specifically on right quadratus lumborum. SLR negative. DERIK test positive on right lower back pain. No effusion, warmth, tenderness over right knee. No tenderness over ITB. Strength is 5/5 in all muscle groups tested. No increased tone noted. Neurological: Neurologic examination of the upper and lower extremities was nonfocal with intact sensation, muscle stretch reflexes and without focal motor deficits . Babinski was down going bilaterally. Clonus was negative. Gait is non-antalgic without loss of balance. Results Reviewed Results Reviewed: Ordering Physician: Scarlett Rodriguez Date of Service: 11/12/24 Procedure(s): XR lumbar spine 2-3V Accession Number(s): [id number] cc: Kalpesh Barker PA-C; Scarlett Rodriguez~ EXAMINATION: XR LUMBAR SPINE 2-3 VIEWS HISTORY: M54.9 - Dorsalgia, unspecified COMPARISON: There are no prior studies for comparison. FINDINGS: AP, lateral, and coned down views of the lumbar spine are submitted. Osseous mineralization is normal. Five nonrib-bearing lumbar vertebral bodies are identified, maintaining normal height and alignment without evidence of fracture or spondylolisthesis. There is minimal posterior spurring involving the inferior endplate of L3. The intervertebral disc spaces are preserved. The posterior elements are intact. The visualized paraspinal soft tissues are unremarkable. XR/XR lumbar spine 2-3V IMPRESSION: Minimal degenerative changes as described. Electronically signed by: Michele Aguilar MD 11/12/2024 02:25 PM [facility] Assessment & Plan Assessment & Plan (1) Chronic back pain: Code(s): M54.9 - Dorsalgia, unspecified; G89.29 - Other chronic pain Category: Medical Qualifiers: Back pain laterality: midline Back pain location: low back pain Sciatica presence: without sciatica Qualified Code(s): M54.50 - Low back pain, unspecified; G89.29 - Other chronic pain (2) Lumbar spondylosis: Code(s): M47.816 - Spondylosis without myelopathy or radiculopathy, lumbar region Category: Medical (3) Lumbar strain: Code(s): S39.012A - Strain of muscle, fascia and tendon of lower back, initial encounter Category: Medical Qualifiers: Encounter type: initial encounter Qualified Code(s): S39.012A - Strain of muscle, fascia and tendon of lower back, initial encounter Plan Chronic axial back pain from most likely lumbar spondylosis. However he fell last week and strain quadratus lumborum. No other signs of lumbar radiculopathy or myelopathy. No signs of knee injury. Patient may continue Tylenol as needed. Continue exercises taught by PT at home. No indication for repeat x- rays today, patient agrees. We will re-evaluate in 1 month. Assessment and plan discussed with patient, and patient was agreeable. All questions were answered thoroughly. Scarlett Levy MD, LARRY Board Certified, [place] [employer] and [employer] (ABPMR) Board Certified, [place] [employer] (ABEM) Coding Level of Care Code Est Pt Level 4 (46921) Diagnoses Chronic midline low back pain without sciatica M54.50; G89.29 Back pain laterality: midline Back pain location: low back pain Sciatica presence: without sciatica Lumbar spondylosis M47.816 Strain of lumbar region, initial encounter S39.012A Encounter type: initial encounter
== END 2025-05-19 09:40 | disposition home or self-care (01) ==
LOC: HO.HOS 08:51
PROVIDERS: PCP Physician Assistant Medical; Visit Provider Physical Medicine & Rehabilitation
DX: M54.50 Low back pain, unspecified (principal); G89.29 Other chronic pain; M47.816 Spondylosis without myelopathy or radiculopathy, lumbar region; S39.012A Strain of muscle, fascia and tendon of lower back, initial encounter
CPT/HCPCS: 99214

== ENCOUNTER → 2025-05-19 08:50 | Outpatient (BNVA) | payer OTHER, SELFPAY | PROVIDERS: PCP Physician Assistant Medical; Visit Provider Physical Medicine & Rehabilitation | DX: S39.012A Strain of muscle, fascia and tendon of lower back, initial encounter (principal); G89.29 Other chronic pain; M47.816 Spondylosis without myelopathy or radiculopathy, lumbar region | CPT/HCPCS: 99212 ==

== ENCOUNTER 2025-06-23 08:22 | Outpatient (AMB) | payer OTHER, SELFPAY ==
--- NOTE | 2025-06-23 08:24 | A.OFFVIS_ITS ---
Vital Signs 06/23/25 08:26 Height 5 ft 10 in Weight 187 lb BMI 26.8 Intake Visit Reasons: OV- Low back pain Intake Note: Lawson is a 59 year old male who presents today as a follow up for his lower back pain. Patient states no changes to report at today's visit. He does have slight discomfort in his mid to lower back after a full day at work but he states it sporadic. He added that the pain no longer radiates down the legs. Torpedoman'S Mate Required: Yes Torpedoman'S Mate Services: Torpedoman'S Mate Present Torpedoman'S Mate Name: Lawson [phone] Allergies No Known Allergies Allergy (Verified 06/23/25 08:32) HPI Comments Details: Chronic at least 10 years of back pain. Bothers him daily. He has been able to manage and denies intense pain. But he says it keeps him from working. Sometimes he would have severe pain episodes that prevents him from walking or working, happens every month. Switches sides from left and right. Stays in his lower back across, not midline, radiates to his legs to his knees. No numbness on his toes or knees. He finished PT and was doing home exercises. Was feeling a lot better with PT. Chronic axial back pain from most likely lumbar spondylosis. However he fell prior to last visit and strained quadratus lumborum.? He is doing well/better now. He does have constant daily pain but he says he can manage it. He does have some issues of bladder retention. No incontinence. He does have a follow up with urology. [facility] Medical History (Updated 05/19/25 @ 09:42 by Scarlett Levy MD) Chronic back pain Social History Current occupational status: employed Current occupation: barbar/ rt hand Physical Exam Vital Signs: BMI result Body Mass Index 26.8 Constitutional: Patient appears to be in no acute distress, well nourished and well developed. Patient was appropriately conversant and oriented. Good historian. MSK: No specific abnormalities found on inspection of the spine and all extremities. No pain with palpation over the lumbar area. No tenderness over spinous processes or facets. No tenderness over quadratus lumborum or SI joints. Neurological: Neurologic examination of the upper and lower extremities was nonfocal with intact sensation, muscle stretch reflexes and without focal motor deficits . Gait is non-antalgic without loss of balance. Results Reviewed Results Reviewed: Ordering Physician: Scarlett Rodriguez Date of Service: 11/12/24 Procedure(s): XR lumbar spine 2-3V Accession Number(s): [id number] cc: Kalpesh Barker PA-C; Scarlett Rodriguez~ EXAMINATION: XR LUMBAR SPINE 2-3 VIEWS HISTORY: M54.9 - Dorsalgia, unspecified COMPARISON: There are no prior studies for comparison. FINDINGS: AP, lateral, and coned down views of the lumbar spine are submitted. Osseous mineralization is normal. Five nonrib-bearing lumbar vertebral bodies are identified, maintaining normal height and alignment without evidence of fracture or spondylolisthesis. There is minimal posterior spurring involving the inferior endplate of L3. The intervertebral disc spaces are preserved. The posterior elements are intact. The visualized paraspinal soft tissues are unremarkable. XR/XR lumbar spine 2-3V IMPRESSION: Minimal degenerative changes as described. Electronically signed by: Michele Aguilar MD 11/12/2024 02:25 PM EST Assessment & Plan Assessment & Plan (1) Chronic back pain: Code(s): M54.9 - Dorsalgia, unspecified; G89.29 - Other chronic pain Category: Medical Qualifiers: Back pain location: low back pain Back pain laterality: midline Sciatica presence: without sciatica Qualified Code(s): M54.50 - Low back pain, unspecified; G89.29 - Other chronic pain (2) Lumbar spondylosis: Code(s): M47.816 - Spondylosis without myelopathy or radiculopathy, lumbar region Category: Medical Plan Chronic axial back pain from most likely lumbar spondylosis. Discussed red flags to watch out for. Assessment and plan discussed with patient, and patient was agreeable. All questions were answered thoroughly. Follow up 6 months or as needed. Scarlett Levy MD, LARRY Board Certified, [place] Board [employer] and Rehabilitation (ABPMR) Board Certified, [place] Board of Electrodiagnostic Medicine (ABEM) Coding Level of Care Code Est Pt Level 3 (39490) Diagnoses Chronic midline low back pain without sciatica M54.50; G89.29 Back pain location: low back pain Back pain laterality: midline Sciatica presence: without sciatica Lumbar spondylosis M47.81
[2025-06-23 08:26] VITALS: BMI 26.8
--- OUTSIDE RECORDS SUMMARY | 2025-06-23 09:23 | XMS_ITS | Encounter Summary ---
Author Organization [employer] Address [address] [facility] [address] [place] [address] Care Team Providers Care Standards Analyst Name Role Phone Unavailable Primary Care Provider Unavailabl e Encounter Details Date Type Department Care Team (Latest Contact Info) Description 01/24/2021 Abstract [facility] CONVERSIONS Dental, Provider, DDS Social History Tobacco Use Types Packs/Day Years Used Date Smoking Tobacco: Never Assessed Sex and Gender Information Value Date Recorded Sex Assigned at Male 08/12/2022 10:28 AM EDT Legal Sex Male 10:28 AM EDT Gender Identity Male 08/12/2022 10:28 AM EDT Sexual Orientation Straight 06/20/2025 2: 10 PM EDT documented as of this encounter Plan of Treatment Upcoming Encounters Date Type Department Care Team (Late st Contact Info) Description 06/27/2025 10:00 AM EDT Office Visit [facility] [address] [place] [address] Mary Duran [address] [place], [place] [phone] documented as of this encounter Visit Diagnoses Not on filedocumented in this encounter
--- OUTSIDE RECORDS SUMMARY | 2025-06-23 09:23 | XMS_ITS | Clinical Summary ---
Author Organization [employer] Address [address] [facility] [address] [place] [address] Care Team Providers Care Bulking Machine Operator Name Role Phone Unavailable Primary [...] by mouth in the morning. 11/06/2022 Active magnesium citrate oral solution Take 296 mL by mouth 1 (one) time. Active lisinopril 5 MG tablet Take 5 mg by mouth Once per day. 08/09/2024 Active Encounters Date Type Department Care Team Description 06/20/2025 Travel from Last 3 Months Social History Tobacco Use Types Packs/Day Years [...] Orientation Straight 06/20/2025 2: 10 PM EDT Last Filed Vital Signs Vital Sign Reading Time Taken Comments Blood Pressure 126/62 12/20/2024 3:07 PM EDT Pulse 69 12/20/2024 3:07 PM EDT Temperature - - Respiratory Rate - - Oxygen Saturation - - Inhaled Oxygen Concentration - - Weight - - Height - - Body Mass Index - - Plan of Treatment Upcoming Encounters Date Type Department Care Team (Angel st Contact Info) Description 06/27/2025 10:00 AM EDT Office Visit [facility] [address] [place] [phone] Mary Duran [address] [place], [place] [phone] Health Maintenance Due Date Last Done Comments CT Colonography 1967 Colonoscopy 1967 Colorectal Cancer Screening 1967 Dental X-Ray: Full Mouth 1967 Depression Screening 1967 FIT DNA/Cologuard 1967 FIT 1967 FOBT 1967 Lipid Panel 1967 SDOH Screening 1967 Sigmoidoscopy 1967 Disability Screening 1967 Alcohol/Substance Use Screening 1979 Hepatitis C Screening 1985 Pneumococcal Vaccine: 50+ Years (1 of 1 - PCV) 2017 Zoster Vaccines (1 of 2) 2017 COVID-19 Vaccine (3 - season) 2025 03/05/2021, 02/05/2021 Influenza Vaccine (#1) 2025 08/01/2015, 2014 Dental Oral Exam 06/23/2025 12/20/2024, , 11/10/2023, Additional history exists Dental Prophylaxis 06/23/2025 12/20/2024, 0 05/17/2024, 11/10/2023, Additional history exists Tobacco Screening 12/20/2025 12/20/2024 Dental X-Ray: Bitewings 12/21/2025 12/20/2024, 11/10 DTaP/Tdap/Td Vaccines (3 - Td or Tdap) 12/14/2028 12/14/2018, 08/01/2015 RSV Patients and Patients Aged 60 years or older (1 - 1-dose 75+ series) 2042 HIV Screening Completed 04/12/2020 Hepatitis B Vaccines Completed 12/09/2024, 06/08/20 HIB [...] Procedure Name Priority Date/Time Associated Diagnosis Comments PROPHYLAXIS - ADULT Routine 12/20/2024 3 :00 PM EDT BITEWINGS - 4 RADIOGRAPHIC IMAGES Routine 12/20/2024 3:00 PM EDT PERIODIC ORAL EVALUATION - ESTABLISHED PATIENT Routine 12/20/2024 3:00 PM EDT from Last 3 Months or Most Recently Relevant to Health Maintenance Insurance [facility]
--- OUTSIDE RECORDS SUMMARY | 2025-06-23 09:23 | XMS_ITS | Clinical Summary ---
Author Organization [facility] Address [address] [place] [phone] Phone Care Team Providers Care Manufacturing Engineering Director Name Role Phone Kalpesh Barker PA-C Primary Care Provider [phone] Allergies No known active allergies Medications tamsulosin [...] time each day 90 tablet 3 02/07/2025 Active Active Problems Problem Noted Date Diagnosed Date Hypertension 05/11/2024 Vitamin D deficiency, not otherwise specified Stage 3a chronic kidney disease 03/24/2024 Chronic kidney disease due to benign hypertensio n 03/24/2024 Benign prostatic hyperplasia 01/11/2019 Overview (03/18/2024): 01/10/19 - Evaluated by [facility] Urology: improving voiding patterns in setting of [...] Visit [facility] [address] [phone] Sendy Tena ARNP [address] [phone] Health Maintenance Due Date Last Done Comments Hepatitis B Vaccine (1 of 3 - 19+ 3-dose series) 12/06 Pneumococcal Vaccine: 50+ Years (1 of 2 - PCV) 987 Colorectal Cancer Screening: Annual FOBT 2016 Colorectal Cancer Screening: Colonoscopy 2016 Colorectal Cancer Screening: Sigmoidoscopy 2016 Influenza Vaccine (#1) 2025 08/01/2015 Insurance Care Teams Manufacturing Engineering Director Relationship Specialty Start Date End Date Kalpesh Barker PA-C [address] [place] [address] PCP - General Physician Call Center Manager 03/02/24
--- OUTSIDE RECORDS SUMMARY | 2025-06-23 09:23 | XMS_ITS | Clinical Summary ---
Author Organization [facility] Address [address] [place] [address] Care Team Providers Care Cushion Cover Inspector Name Role Phone Kalpesh Barker PA-C Primary Care Provider [phone] Source Comments PLEASE NOTE, if this patient [...] Tablet by mouth once daily 3 Active magnesium citrate solution Take 296 mL by mouth Active cholecalciferol (VITAMIN D-3) 50 mcg (2,000 unit) tablet Take 2,000 Units by mouth 4 Active atorvastatin (LIPITOR) 20 mg tabletIndications:M ixed hyperlipidemia Take 1 Tablet by mouth once daily with dinner 90 Tablet 1 5 Active carvediloL (COREG) 12.5 mg tabletIndications:P alpitations TAKE 1 TABLET BY MOUTH TWICE A DAY WITH FOOD 180 Tablet 1 5 Active lisinopriL 5 mg tabletIndications:S tage 3a chronic kidney disease (CMS & HHS-HCC) Take 1 Tablet by mouth once daily 90 Tablet 1 5 Active meloxicam (MOBIC) 15 mg tabletIndications:L eft arm pain,Chronic midline low back pain without sciatica TAKE 1 TABLET BY MOUTH EVERY DAY 90 Tablet 1 5 Active Active Problems Problem Noted Date Diagnosed Date Vitamin D deficiency 05/11/2024 Chronic kidney disease due to benign hypertensio n 03/24/2024 Chronic kidney disease, stage 3a (CMS & HHS-HCC) 03/24/2024 Back pain 02/04/2024 History of latent tuberculosis 04/04/2020 BPH (benign prostatic hyperplasia) 01/11/2019 Overview (01/11/2019): 01/10/19 - Evaluated by [facility] Urology: improving voiding patterns in setting of [...] 12/09/2024 11:16 AM EST Plan of Treatment Upcoming Encounters Date Type Department Care Team (Late st Contact Info) Description 08/17/2025 10:40 AM EST [facility] [phone] [place] [phone] Kalpesh Barker PA-C [address] [place] [address] Health Maintenance Due Date Last Done Comments CT Colonography 2012 FIT/gFOBT 2012 Fecal DNA 2012 Flexible Sigmoidoscopy 2012 Imm-Pneumococcal 50+ (1 of 1 - PCV) 2017 Imm-Zoster, Recombinant (1 of 2) 2017 Annual Wellness (Adult): Indicated (All Coverage) 02/03/2025 02/04/2024, 07/24/2023, 05/07/2021, Additional history exists [id number] ( - 2024- season) 2025 021, 02/05/2021 Anxiety Screening 12/09/2025 12/09/2024 Tobacco Screening 12/09/2025 [...] Name Priority Date/Time Associated Diagnosis Comments REFERRAL SCANNED DOCUMENT 06/07/2025 3:00 AM EDT REFERRAL SCANNED DOCUMENT 05/19/2025 3:00 AM EDT REFERRAL FOR COLONOSCOPY Routine 03/17/2025 3:00 AM [...] Relevant to Health Maintenance Results * REFERRAL SCANNED DOCUMENT (06/07/2025 3:00 AM EDT) Only the most recent of2 resultswithin the time period is included. 06/07/2025 3:00 AM EDT Validascea PA-C SCAN REFERRAL Final Result * REFERRAL FOR COLONOSCOPY (03/17/2025 3:00 AM EDT) 03/17/2025 3:00 AM EDT BlockBeaconr Barker PA-C REFERRAL Final Result * (ABNORMAL) HEMOGLOBIN GLYCOSYLATED A1C (12/14/2024 8:50 AM EST) HEMOGLOBIN A1C 5.7(H) <5.7 % of total Hgb [facility] Comment: For someone without known diabetes, a [...] AM EST 12/14/2024 8:50 AM EST Narrative [facility] - 12/15/2024 10:12 AM EST FASTING:YES us Kalpesh Barker PA-C LAB - BLOOD DRAW Edited Resu lt - Final Performing Organization Address [facility] de Phone Number [facility] [address] [address], [facility] [address] [phone] * (ABNORMAL) LIPID PANEL (12/14/2024 8:50 AM EST) CHOLESTEROL, TOTAL 210(H) <200 mg/dL [facility] HDL CHOLESTEROL 50 > OR = 40 mg/dL [facility] TRIGLYCERIDES 77 <150 mg/dL [facility] LDL-CHOLESTEROL 142(H) 99 mg/dL (calc) [facility] Comment: Reference range: <100 Desirable range <100 mg/dL for primary prevention; <70 mg/dL for patients with CHD or diabetic patients with > or = 2 CHD risk factors. LDL-C is now calculated using the Mahesh-Joanna calculation, which is a validated novel method providing better accuracy than the Friedewald equation in the estimation of LDL-C. Mahesh SS et al. NED. 2013;310(19): 9642-3909 (http://education.[employer]Up/faq/GHV231) CHOL/HDLC RATIO 4.2 <5.0 (calc) [facility] NON-HDL CHOLESTEROL 160(H) <130 mg/dL (calc) [facility] Comment: For patients with diabetes plus 1 major ASCVD risk factor, treating to a non-HDL-C goal of <100 mg/dL (LDL-C of <70 mg/dL) is considered a therapeutic option. Blood Blood / Unknown 12/14/2024 8 :50 AM EST 12/14/2024 8:50 AM EST Narrative [facility] - 12/15/2024 10:12 AM EST FASTING:YES us Kalpesh Barker PA-C LAB - BLOOD DRAW Final Resul t Performing Organization Address [facility] Co de Phone Number [facility] [address] [address], [facility] [address] [phone] * HEPATITIS C AB W/RFLX HCV RNA, QT, RT PCR (11/20/2023 9:20 AM EST) HEPATITIS C ANTIBODY NON-REACT DAYANA NON-REACT DAYANA [facility] Comment: HCV antibody was non-reactive. There is no laboratory evidence of HCV infection. In most cases, no further action is required. However, if recent HCV exposure is suspected, a test for HCV RNA (test code 03615) is suggested. For additional information please refer to http://education.[employer]./faq/BLX59v3 (This link is being provided for informational/ educational purposes only.) Blood Blood / Unknown 11/20/2023 9 :20 AM EST 11/20/2023 9:21 AM EST Narrative [facility] - 11/21/2023 10:19 PM EST FASTING:YES Gretta Judd NP LAB - BLOOD DRAW Final Resul t Performing Organization Address [facility] [place] [address], [facility] [address] [phone] * HIV-1 & HIV-2 ANTIBODIES (04/12/2020 9:37 AM EDT) Pathologist [facility] HIV 1 AND 2 ANTIBODY SCREEN NEGATIVE NEGATIVE [facility] Comment: This assay is a 4th generation [...] AM EDT 04/12/2020 1:00 PM EDT Narrative [facility] - 04/12/2020 3:36 PM EDT [employer], a member of [facility] [address] [place] [address] Cardiovascular Or Nurse - Lori Carvajal MD PT ID [id number] ORD# [id number] Kalpesh Barker PA-C LAB - BLOOD DRAW Final Resul t [facility] [address] [place] [address], from Last 3 Months or Most Recently Relevant to Health Maintenance Insurance [employer] Member Subscriber Plan / Payer (Ef fective 2024-Present) Name:Lawson Miller Relation to Subscriber:Self Name:Lawson Miller Payer ID:[id number] Type:Indemnity Address: [facility] [address] [place] [address] Care Teams Cushion Cover Inspector Relationship Specialty Start Date End Date Kalpesh Barker PA-C [address] [place] [address] PCP - General FAMILY MEDICINEVINCE 04/04/20
--- OUTSIDE RECORDS SUMMARY | 2025-06-23 09:23 | XMS_ITS | Encounter Summary ---
Author Organization [employer] Address [address] [facility] [address] [place] [address] Care Team Providers Care Warp Spinner Name Role Phone Unavailable Primary Care Provider Unavailabl e Encounter Details Date Type Department Care Team (Latest Contact Info) Description 01/20/2019 Abstract [facility] CONVERSIONS Dental, Provider, DDS Social History [...] Description 06/27/2025 10:00 AM EDT Office Visit [facility] [address] [place] [address] Mary Duran [address] [place], [place] [phone] documented as of this encounter Visit Diagnoses Not on filedocumented in this encounter
--- OUTSIDE RECORDS SUMMARY | 2025-06-23 09:23 | XMS_ITS | Encounter Summary ---
Author Organization [employer] Address [address] [facility] [address] [place] [address] Care Team Providers Care Glass Deposition Tender Name Role Phone Unavailable Primary Care Provider Unavailabl e Encounter Details Date Type Department Care Team (Latest Contact Info) Description 06/06/2022 Abstract [facility] CONVERSIONS Dental, Provider, DDS Social History Tobacco [...] Description 06/27/2025 10:00 AM EDT Office Visit [facility] D[facility] [address] [place] [address] Mary Duran [address] [place], [place] [phone] documented as of this encounter Visit Diagnoses Not on filedocumented in this encounter
--- OUTSIDE RECORDS SUMMARY | 2025-06-23 09:23 | XMS_ITS | Encounter Summary ---
Author Organization [employer] Address [address] [facility] [address] [place] [address] Care Team Providers Care Billiard Table Mechanic Name Role Phone Unavailable Primary Care Provider Unavailabl e Encounter Details Date Type Department Care Team (Latest Contact Info) Description 06/20/2025 Travel Social History Tobacco Use Types Packs/Day Years Used Date Smoking Tobacco: Never Smokeless Tobacco: Never Alcohol Use Standard Drinks/Week Comments Yes 0 [...] Description 06/27/2025 10:00 AM EDT Office Visit [facility] [address] [place], [place] [phone] Mary Duran [address] [place], [place] [phone] documented as of this encounter Visit Diagnoses Not on filedocumented in this encounter
--- OUTSIDE RECORDS SUMMARY | 2025-06-23 09:23 | XMS_ITS | Clinical Summary ---
Author Organization [address] [facility] Address [address] [place] [address] Phone Care Team Providers Care Door Maker Name Role Phone Kalpesh Barker Primary Care Provider [phone] Allergies No known active allergies Medications atorvastatin [...] before your procedure. 4000 mL 5 Active Surgical History Surgery Date Site/Laterality Comments COLONOSCOPY [...] 2017 Social [employer] of Health Screening 09/15/2022 Depression Screening 10/13/2024 COVID-19 Vaccine ( season) 2025 03/05/2021, 02/05/2021 Influenza Vaccine (#1) 2025 08/01/2015 Hypertension/CHF/CAD Annual [...] 11:55 AM EDT History of colon polyps from Last 3 Months or Most Recently Relevant to Health Maintenance Results * COLONOSCOPY Anesthesia - MAC; SP ENDOSCOPY (03/17/2025 11:55 AM EDT) Anatomical Region Laterality Modality Other 03/17/2025 11:3 5 AM EDT Impressions 03/17/2025 11:58 AM EDT - Internal hemorrhoids. - One 3 mm polyp in the ascending colon. Biopsied. Recommendation: - Await pathology results. - Use fiber, for example Citrucel, Fibercon, Konsyl or Metamucil. - Repeat colonoscopy in 5 years for surveillance. Narrative 03/17/2025 11:[address] [facility] Patient Name: Lawson Miller Procedure Date: [...] was minimal. Procedure Code(s): --- Professional --- 18729, Colonoscopy, flexible; with biopsy, single or multiple Diagnosis Code(s): --- Professional --- K64.0, First degree hemorrhoids D12.2, Benign neoplasm of ascending colon CPT copyright 2020 [employer]. All rights reserved. The codes documented in this report are preliminary and upon costume designer review may be revised to meet current compliance requirements. Clement Antunez MD 03/17/2025 11:57:58 AM This report has been signed electronically.Clement Antunez MD Number of Addenda: 0 Note Initiated On: 03/17/2025 11:35 AM Scope In: Scope Out: Endoscopy Department at [facility] - [address] [place] [phone] Procedure Note Clement Antunez MD - 03/17/2025 [facility] Patient Name: Lawson Miller Procedure Date: [...] was minimal. Procedure Code(s): --- Professional --- 34290, Colonoscopy, flexible; with biopsy, singleor multiple Diagnosis Code(s): --- Professional --- K64.0, First degree hemorrhoids D12.2, Benign neoplasm of ascending colon CPT copyright 2020 [employer]. All rights reserved. The codes documented in this report are preliminary and upon costume designer reviewmay be revised to meet current compliance requirements. Clement Antunez MD 03/17/2025 11:57:58 AM This report has been signed electronically.Clement Antunez MD Number of Addenda: 0 Note Initiated On: 03/17/2025 11:35 AM Scope In: Scope Out: Endoscopy Department at [facility] - [address] [place] [phone] IMPRESSION: - Internal hemorrhoids. - One 3 mm polyp in the ascending colon.Biopsied. Recommendation: - Await pathology results. - Use fiber, for example Citrucel, Fibercon, Konsylor Metamucil. - Repeat colonoscopy in 5 years for surveillance. Clement Antunez MD GI~PROCEDURE ORDERABLES Final Re sult from Last 3 Months or Most Recently Relevant to Health Maintenance Insurance [facility] [employer] Care Teams Door Maker Relationship Specialty Start Date End Date Kalpesh Barker PA [address] [place] [address] PCP - General 12/10/24
== END 2025-06-23 08:48 | disposition home or self-care (01) ==
LOC: HO.HOS 08:23
PROVIDERS: PCP Physician Assistant Medical; Visit Provider Physical Medicine & Rehabilitation
DX: M54.50 Low back pain, unspecified (principal); G89.29 Other chronic pain; M47.816 Spondylosis without myelopathy or radiculopathy, lumbar region
CPT/HCPCS: 99213

== ENCOUNTER → 2025-06-23 08:22 | Outpatient (BNVA) | payer OTHER, SELFPAY | PROVIDERS: PCP Physician Assistant Medical; Visit Provider Physical Medicine & Rehabilitation | DX: M47.816 Spondylosis without myelopathy or radiculopathy, lumbar region (principal); M54.50 Low back pain, unspecified; G89.29 Other chronic pain | CPT/HCPCS: 99212 ==